=== PATIENT | female | born 1975 | race Caucasian/White ===

== ENCOUNTER 2018-05-28 11:01 | Emergency (ER) | END 2018-05-28 14:24 | disposition home or self-care (01) ==

== ENCOUNTER 2018-05-28 20:11 | Emergency (ER) | END 2018-05-28 22:40 | disposition home or self-care (01) ==

== ENCOUNTER 2018-05-29 16:18 | Emergency (ER) | END 2018-05-29 19:51 | disposition home or self-care (01) ==

== ENCOUNTER 2018-06-01 10:23 | Emergency (ER) | END 2018-06-01 11:55 | disposition home or self-care (01) ==